=== PATIENT | male | born 1935 | race Caucasian/White ===

== ENCOUNTER 2016-08-26 05:57 | Inpatient (IN) | payer MEDICARE, OTHER ==
--- NOTE | ~2016-08-26 | HP ---
History And Physical [place] [id number] [facility] [place]. [address] NAME: MAITE CARTER : 37 STATUS : ADM Yfn PAT#: [id number] AGE: 81 ADM/REG DATE : 08/26/16 MR#: [id number] REPORT SERV DATE: 08/26/16 DICTATED BY: JOSE LUIS SAGE DATE: 08/26/16 REPORT STATUS : Draft TRANSCRIBED BY: MODL DATE: 08/26/16 DATE OF ADMISSION: 08/26/2016 POINT OF ENTRY: Transfer from [facility] Emergency Department. PRIMARY CARE PHYSICIAN: Dr. Acosta. PRIMARY DATA SECURITY COORDINATOR: Dr. Julio. CHIEF COMPLAINT: Elevated troponin value, elevated D-dimer, concern for CHF. HISTORY OF PRESENT ILLNESS: Mr. 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 The patient presented to [facility] Emergency Department today at his family's insistence for worsening weakness and reports of confusion. The patient does state that he is very weak, but he denies any confusion. Specifically, he also denies any chest pain, fevers, night sweats, chills, abdominal pain, vomiting, diarrhea, constipation, melena, or hematochezia. He does report some stable shortness of breath, as well as lower extremity edema, but states that his appetite has been good. Unfortunately, he is unable provide any more specific details as he is a very poor historian. No family is at bedside. Initial evaluation at [facility] Emergency Department notable for troponin value of 0.19. His creatinine is elevated at 2.3. BNP was greater than 5000. D-dimer is also elevated at 2210 with cutoff of less than 400. CT scan of the brain was negative. EKG shows sinus bradycardia. Chest x-ray reportedly showed some Bertin B lines. The patient was felt to be intravascularly dry, was put on some low-dose IV fluids and transferred to [facility] for high level of care. Upon transfer, again patient denies any chest pain. Does report some stable shortness of breath. Has really no other complaints. Did report some nausea a few days ago and is really unable to tell me specifically why his family wanted him to come to the ER other than he stated that they felt he was "going to ." REVIEW OF SYSTEMS: Comprehensive review of systems is otherwise negative unless listed in the history of present illness. PREVIOUS MEDICAL HISTORY: 1. Chronic systolic congestive heart failure, ejection fraction of 35% of 40%. 2. Hypertension. 3. Hyperlipidemia. 4. Prior history of cerebrovascular accident and chronic kidney disease, stage 3. History And Physical [address] [address] NAME: MAITE CARTER : 37 STATUS : ADM Yfn PAT#: [id number] AGE: 81 ADM/REG DATE : 08/26/16 MR#: [id number] REPORT SERV DATE: 08/26/16 DICTATED BY: JOSE LUIS SAGE DATE: 08/26/16 REPORT STATUS : Draft TRANSCRIBED BY: SINCERE DATE: 08/26/16 Baseline creatinine approximately 2.2. 5. Coronary artery disease with multivessel disease, but currently has declined surgical intervention. ALLERGIES: NO KNOWN DRUG ALLERGIES. HOME MEDICATIONS: Pending at time of dictation. SOCIAL HISTORY: Denies tobacco, alcohol, or illicits. Now lives with his son and daughter- in-law. FAMILY MEDICAL HISTORY: Noncontributory. SURGICAL HISTORY: 1. Left total hip arthroplasty. 2. Cholecystectomy. 3. Back surgery, . 4. Left arm fracture repair, . LABS AND IMAGING: All obtained from transfer records from [facility] Emergency Department. 1. White count is 9.7, hemoglobin 12.9, hematocrit 39.2, and platelet count is 187. INR 1.47. 2. D-dimer is 2210, cutoff is less than 400. Sodium level is 135, potassium 4.6, chloride 96, carbon dioxide 30, BUN 68, creatinine 2.3, glucose is 107, calcium is 9.1, protein 6.3, albumin 3.2, bilirubin is 1.6, ALT is 59, AST is 69, alkaline phosphatase is 125. 3. BNP is greater than 5000. Troponin 0.19, CK-MB 3.1. 4. TSH is 6.48. 5. CT scan of the brain shows no acute intracranial abnormality. Does show multiple areas of encephalomalacia from prior cerebrovascular accidents including the right parietal region as well as basal ganglia. 6. EKG per my review shows sinus bradycardia with an incomplete right bundle-branch block with some lateral inferolateral T-wave inversions. 7. Urinalysis: Specific gravity is 1.008. No evidence of any infection. PHYSICAL EXAMINATION: VITAL SIGNS: Temperature is 97.6 degrees Fahrenheit, pulse is 55, respirations 16, saturating 98% on 2 L by nasal cannula, blood pressure 119/58. GENERAL: The patient is awake, alert, and in no acute distress. Resting comfortably. He is a chronically ill-appearing, elderly male. No family is at bedside. HEENT: Atraumatic and normocephalic. Slightly dry mucous membranes. Pupils are equal, round, reactive to light and accommodation. Extraocular eye movements intact. No scleral icterus. NECK: No jugular venous distention. No carotid bruits. CARDIAC: Regular rate and rhythm. Occasional ectopic beats. The patient has a 3/6 systolic and a 2/6 diastolic murmur heard best over the apex. ABDOMEN: Soft, nontender, nondistended. Good bowel sounds. No rebound, guarding, or History And Physical [address] [address] NAME: MAITE CARTER : 37 STATUS : ADM Yfn PAT#: [id number] AGE: 81 ADM/REG DATE : 08/26/16 MR#: [id number] REPORT SERV DATE: 08/26/16 DICTATED BY: JOSE LUIS SAGE DATE: 08/26/16 REPORT STATUS : Draft TRANSCRIBED BY: MODTyson DATE: 08/26/16 rigidity. EXTREMITIES: Warm and perfused with 1 to 2+ lower extremity edema as well as chronic venous stasis changes. SKIN: Warm and dry except for noted above. PSYCH: Affect appropriate. NEURO: Alert, oriented x3. Cranial nerves 2 through 12 are grossly intact. Speech is normal. Gait not assessed. ASSESSMENT AND PLAN: Mr. Carter is a 81-year-old gentleman who presented to [facility] Emergency Department for reports of confusion and weakness, and found to have evidence of elevated troponin value, elevated D-dimer value, as well as concern for congestive heart failure. PROBLEM LIST: 1. Elevated troponin value. 2. Elevated D-dimer value. 3. Acute on chronic systolic congestive heart failure. 4. Confusion. 5. Weakness. 6. Chronic kidney disease, stage 3 to stage 4. 7. Transaminitis. 8. History of coronary artery disease. PLAN: 1. Elevated troponin value. The patient denies any chest pain. His EKG does not appear to show any active ischemia, although he does have some in mild inferolateral Q-wave inversions. This may be due to his depressed GFR and renal function as well as concern for acute on chronic systolic congestive heart failure. We will continue to trend out cardiac enzymes. We will consult the patient's primary bore miner operator for assistance. 2. Elevated D-dimer level. The patient denies any chest pain. He is not tachycardic, therefore we will not initiate anticoagulation at this time, but we will evaluate his elevated D-dimer with lower extremity Dopplers as well as a V/Q scan given the patient's elevated creatinine value. 3. Acute on chronic systolic congestive heart failure. The patient does have a BNP level greatly elevated at greater than 5000. He does have some lower extremity edema and a known history of CHF. The ER physician at [facility] was concerned that the patient was intravascularly dry and started him on IV fluids. We will stop IV fluids, give him some low-dose IV Lasix while we follow up our own BNP as well as repeat chest x-ray. 4. Weakness and confusion. Chest CT scan of the brain was unremarkable. Labs were otherwise unremarkable including urinalysis that was negative. The patient has a nonfocal neurologic exam here on my evaluation. We will workup weakness and confusion with ammonia level, B12, thyroid function studies, as well as avoiding sedating medications. Consult Physical Therapy for evaluation. 5. DVT prophylaxis. Lovenox subcu. 6. Code status. The patient wishes to be full code. History And Physical [address] [place]. [address] NAME: MAITE CARTER : 37 STATUS : ADM Yfn PAT#: [id number] AGE: 81 ADM/REG DATE : 08/26/16 MR#: [id number] REPORT SERV DATE: 08/26/16 DICTATED BY: JOSE LUIS SAGE DATE: 08/26/16 REPORT STATUS : Draft TRANSCRIBED BY: SINCERE DATE: 08/26/16 KATALINA/SINCERE Jose Luis Sage MD / [id number] CC: Leonard Arizmendi Jr., M.D.
--- NOTE | ~2016-08-26 | DS ---
Discharge Summary [facility] [address] [place]. [address] NAME: MAITE CAMACHO : 37 STATUS : DIS IN PAT#: [id number] AGE: 81 ADM/REG DATE : 08/26/16 MR#: [id number] REPORT SERV DATE: 08/29/16 DICTATED BY: ÁNGEL BELLO DATE: 08/28/16 REPORT STATUS : Draft TRANSCRIBED BY: MODL DATE: 08/28/16 ADMISSION DATE: 08/26/2016 DISCHARGE DATE: 08/28/2016 The patient to be discharging home today, and [facility] will be assuming care of the patient at home. DISCHARGE DIAGNOSES: Include: 1. Acute on chronic systolic heart failure with most recent ejection fraction of 35%, but in the setting of severe mitral regurgitation. 2. Positive troponin. 3. Chronic kidney disease stage 3, most recent creatinine 1.38. 4. 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 5. Weakness. 6. Nonsustained ventricular tachycardia. DISCHARGE MEDICATIONS: To be addressed fully by [facility], but currently at home including Lipitor 40 mg at bedtime, Coreg 3.125 mg twice a day, Plavix 75 mg daily, Flonase nasal spray daily, gabapentin 600 mg twice a day, Lasix 40 mg three times a day, hydrocodone 5/325 one tablet twice a day p.r.n., Ativan 1 mg twice a day, Zaroxolyn 2.5 mg every 48 hours, Flomax 0.4 mg daily, and potassium 20 mEq daily. HISTORY OF PRESENT ILLNESS: This is a 81-year-old white male, who originally was a transfer from [facility] Emergency Department for elevated troponin and CHF. Please see the initial H and P of Dr. Wolfgang Hernandez. The patient was admitted to the hospitalist service for further evaluation and treatment. He was given IV diuresis. Lab work was ordered and followed. His BNP was significantly elevated at greater than 5000. PROCEDURES AND IMAGING DURING THIS ADMISSION: Include a venous Doppler ultrasound of the lower extremities that was negative for bilateral DVTs and V/Q scan of the lung that showed an intermediate probability for pulmonary embolus, but in the setting of severe heart failure and BNP greater than 5000. HOSPITAL COURSE: I began seeing the patient on 08/26/2016, where he was feeling a little bit better, but not wishing to be very cooperative in answering questions. He had begun to diurese somewhat, although he was still quite edematous, particularly in his lower extremities. He underwent the above-described testing. As stated, Synthroid was added to his regimen as TSH was somewhat elevated and after further discussion with health program specialist, Dr. Emery, who saw the patient during this hospitalization, and further discussion with the patient's family, Palliative Care was consulted as the patient did not wish to proceed with any surgical intervention for his mitral valve. After the patient was seen by Palliative Care and discussion with his family, it was determined that hospice would be pursued as he is in end-stage heart failure, and [facility] was eventually consulted and they have agreed to go under their care at discharge. The patient did continue to diurese during this admission with IV Lasix and weight dropped from approximately 60 kg down to 55 kg, and appreciate Cardiology's and Palliative Care's help on this patient's hospitalization. I Discharge Summary [address] [address] NAME: MAITE CAMACHO : 37 STATUS : DIS IN PAT#: [id number] AGE: 81 ADM/REG DATE : 08/26/16 MR#: [id number] REPORT SERV DATE: 08/29/16 DICTATED BY: ÁNGEL BELLO DATE: 08/28/16 REPORT STATUS : Draft TRANSCRIBED BY: SINCERE DATE: 08/28/16 have updated the patient and family at bedside. [facility]/SANAML Ángel Bello NP / [id number] CC: Leonard Arizmendi MD
--- NOTE | ~2016-08-26 | CN ---
Consultation Report [facility] [address] [place]. [address] NAME: MAITE CARTER : 37 STATUS : ADM Yfn PAT#: [id number] AGE: 81 ADM/REG DATE : 08/26/16 MR#: [id number] REPORT SERV DATE: 08/26/16 DICTATED BY: SHERYL EMERY DATE: 08/26/16 REPORT STATUS : Draft TRANSCRIBED BY: MODL DATE: 08/26/16 CARDIOLOGY CONSULTATION DATE OF CONSULTATION: 08/26/2016 REASON FOR CONSULTATION: Dyspnea and congestive heart failure in a patient with known aortic insufficiency and mitral regurgitation. HISTORY OF PRESENT ILLNESS: Mr. Carter is a 81-year-old man with multiple medical problems, which include a history of aortic insufficiency and single-vessel coronary artery disease. The patient also has a history of chronic systolic heart failure. He is followed by Dr. Julio of [facility]. The patient apparently was previously recommended to have an aortic valve replacement surgery due to what was felt to be severe symptomatic aortic insufficiency. The patient refused this. Despite this fact, the patient's ejection fraction improved from its baseline of 20% in the year 2013 to its more recent value of 35% to 40%. The patient was last seen by Dr. Julio in 05/2016. He was having some dyspnea at that time, and was being treated with oral diuretics. The patient was brought to [facility] by his family for symptoms of "smothering" as well as dizziness and generalized fatigue. The patient was transferred to [facility] for further evaluation and management. At this time, the patient remains very fatigued and dyspneic. He has mild orthopnea, though he is alert and oriented and in no acute respiratory distress at this time. He denies chest pain. He is a somewhat poor historian. PAST MEDICAL HISTORY: 1. Chronic systolic heart failure. 2. Aortic insufficiency. 3. Mitral regurgitation. 4. Stroke. 5. Hypertension. 6. Possible chronic kidney disease (the patient is unaware of this). PAST SURGICAL HISTORY: Significant for cholecystectomy and hip replacement surgery. FAMILY HISTORY: Noncontributory. SOCIAL HISTORY: The patient does not smoke cigarettes. His family reports a distant history of alcohol use, but none in the last several years. He has no history of recreational drug use. Consultation Report [facility] [address] [place]. [address] NAME: MAITE CARTER : 37 STATUS : ADM Yfn PAT#: [id number] AGE: 81 ADM/REG DATE : 08/26/16 MR#: [id number] REPORT SERV DATE: 08/26/16 DICTATED BY: SHERYL EMERY DATE: 08/26/16 REPORT STATUS : Draft TRANSCRIBED BY: MODTyson DATE: 08/26/16 ALLERGIES: THE PATIENT HAS NO KNOWN MEDICATION ALLERGIES. HOME MEDICATIONS: The home MAR has not been completed, but according to Dr. Julio's most recent note, the patient's medications include the followin. Aspirin 81 mg daily. 2. Atorvastatin 40 mg p.o. at bedtime. 3. Carvedilol 3.125 mg twice daily. 4. Plavix 75 mg daily. 5. Lasix 80 mg p.o. q.a.m. and 40 mg q.p.m. 6. Gabapentin 600 mg p.o. at bedtime as needed. 7. Hydrocodone/acetaminophen 5/325 mg one tablet q.6 h. as needed. 8. Klor-Con 20 mEq daily. 9. Lorazepam 1 mg p.o. daily. 10.Metolazone 2.5 mg every Thursday, Thursday, and Thursday. 11.Multivitamin tablet one daily. 12.Nitroglycerin 0.4 mg as needed for chest pain. 13.Home oxygen. 14.Ranitidine 300 mg twice daily. 15.Tamsulosin ER 0.4 mg q.24 h. 16.Zolpidem 20 mg p.o. at bedtime. REVIEW OF SYSTEMS: A complete 12-system review was performed. This is noncontributory except for the pertinent positives and negatives noted in the history of present illness above. PHYSICAL EXAMINATION: VITAL SIGNS: The temperature is 97.6 degrees Fahrenheit, blood pressure is 119/58 mmHg, respirations 23, oxygen saturation is 99% on 2 L nasal cannula. CONSTITUTIONAL: The patient is a thin, chronically ill-appearing white man, who is fatigued, but in no acute respiratory distress at this time. EYES: PERRL, EOMI, clear conjunctiva. HEAD/MNT: NCAT with moist mucous membranes and grossly normal hard and soft palate. NECK: Supple with no obvious thyromegaly or lymphadenopathy CARDIOVASCULAR: There is a regular rhythm with a normal S1 and a physiologically split second heart sound. There is a grade 2/6 holosystolic murmur noted at the cardiac apex. There is a grade 1/6 decrescendo diastolic murmur best heard at the right upper sternal border. The jugular venous pressure does appear to be grossly elevated to greater than 14 cm. PULMONARY: Limited exam due to fatigue and lack of patient effort. However, there are bibasilar rales noted. No significant wheezing or rhonchi. ABDOMINAL: Soft, non-tender, non-distended with no hepatosplenomegaly noted. EXTREMITIES: There is 2 to 3+ pitting edema with stasis dermatitis noted. No clubbing or cyanosis. MUSCULOSKELETAL: Grossly normal strength and range of motion in all extremities INTEGUMENTARY: Skin appears intact with no bruises, wounds or active lesions noted Consultation Report [address] [place]. [address] NAME: MAITE CARTER : 37 STATUS : ADM Yfn PAT#: [id number] AGE: 81 ADM/REG DATE : 08/26/16 MR#: [id number] REPORT SERV DATE: 08/26/16 DICTATED BY: SHERYL EMERY DATE: 08/26/16 REPORT STATUS : Draft TRANSCRIBED BY: SINCERE DATE: 08/26/16 NEURO/PSYCH: Alert and oriented x3, with no dysarthria, facial droop or lateralizing weakness noted. TWELVE-LEAD EKG: The patient's 12-lead EKG shows sinus bradycardia with a rate of 57 beats per minute. There are nonspecific ST/T-wave abnormalities. Otherwise, unremarkable tracing. CHEST X-RAY: The chest x-ray is suggestive of [id number] pulmonary edema. LABORATORY DATA: White blood cell count is 9.7, hemoglobin 12.9, hematocrit 39, and platelets 187. Sodium is 135, potassium 4.6, chloride is 96, CO2 of 30, BUN 68, creatinine 2.3. Glucose is 107, troponin I 0.19. TSH is elevated at 6.48. B-type natriuretic peptide is grossly elevated at greater than 5000. ASSESSMENT AND PLAN: 1. Acute on chronic systolic congestive heart failure: The patient will be started back on Lasix 80 mg IV q.12 h., to affect diuresis. We will consider the addition of low- dose hydralazine for afterload reduction in the setting of chronic mitral regurgitation. 2. Complex valvular heart disease: The patient has at least moderate aortic insufficiency. He has severe mitral regurgitation: I have reviewed the patient's transthoracic echocardiogram, and there was clear central mitral regurgitation occupying greater than 60% of the left atrial volume, though it does not appear that mitral regurgitation indices were calculated. It is unclear whether the patient has primary or secondary mitral regurgitation. It may be a mixed picture, as the patient does have left ventricular dilation. However, the patient had no significant mitral regurgitation at the time of his cardiac catheterization in 2013. Despite an improvement in his left ventricular systolic function from 20% to 35%-40%, his mitral regurgitation is now severe. The mitral valve does appear to be mildly thickened and degenerated, and I suspect the patient does have some component of rheumatic heart disease. I feel the patient would likely be a candidate for mitral repair, though he is unwilling to consider this. Apparently, the patient's mother of complications of heart surgery. He is unwilling to consider any type of invasive cardiac treatment. Given that this is the case, the patient likely has a poor prognosis, and it would be reasonable to consider palliative care. However, we will attempt to alleviate the patient's symptoms with medical therapy as outlined above. 3. Coronary artery disease: Continue aspirin and atorvastatin. The patient has single- vessel disease involving the right posterior descending artery. He is not experiencing angina at this time. The patient does have a very mild elevation in his troponin I of 0.19. In my opinion, this is consistent with the patient's decompensated heart failure and chronic kidney disease. Given that the patient is unwilling to consider surgical therapy, and also given his advanced chronic kidney disease, I feel an invasive workup for coronary heart disease would be ill advised. Consultation Report [place] [id number] [place]. [address] NAME: MAITE CARTER : 37 STATUS : ADM Yfn PAT#: [id number] AGE: 81 ADM/REG DATE : 08/26/16 MR#: [id number] REPORT SERV DATE: 08/26/16 DICTATED BY: SHERYL EMERY DATE: 04/11/17 REPORT STATUS : Draft TRANSCRIBED BY: SINCERE DATE: 08/26/16 Thank you for allowing me to participate in the care of Mr. Carter. The Cardiology Service will continue to follow the patient closely during this hospitalization. MALISSA/SINCERE Sheryl Emery MD / [id number] CC: Leonard Arizmendi MD
[~2016-08-26 05:57] MED LIST: ASAB PO; ATV1 PO; BUM5 PO; FLOMAX4 PO; FLONASE NAS; KLOR-CON 1010 MEQ PO; KLOR-CON M2020 MEQ PO; L40 PO; LIPITOR40 PO; LOP25 PO; MICRO-K10 MEQ PO; MUCINEX1200 MG PO; NEUR600 PO; NITROQUICK0.4 MG SL; NORCO1 TA1 PO; PLAVIX PO; PRIN2.5 PO; PRIN5 PO; SPIRO25 PO; ULTRAM50 PO; ZANTAC300 MG PO
[2016-08-26 07:49] LABS: INTERNATIONAL NORMAL RATI 1.3 UNITS (-); PARTIAL THROMBO TIME 28.1 SEC (22.5-37.2); PROTIME (NOT ORD) 16.1 SEC (12.0-14.5)
[2016-08-26 07:53] LABS: D-DIMER QUANTITATIVE 3.49 ug/mLFEU (< 0.50)
[2016-08-26 08:35] LABS: FREE T4 0.93 NG/DL (0.76-1.46); ULTRASENSITIVE TSH 5.4 MCIU/ML (0.358-3.740)
[2016-08-26 08:40] LABS: FOLATE 33.3 NG/ML (>5.2); TROPONIN I 0.18 NG/ML (<0.05)
[2016-08-26] MEDS ORDERED: ATV1 PO (12:15)
[2016-08-26] MEDS ORDERED: NORCO1 TA1 PO (12:15)
[2016-08-26] MEDS ORDERED: ZAROX2.5B PO (12:16)
[2016-08-26] MEDS ORDERED: LIPITOR40 PO (12:16)
[2016-08-26] MEDS ORDERED: COREG3 PO (12:16)
[2016-08-26] MEDS ORDERED: NEUR600 PO (12:18)
[2016-08-26] MEDS ORDERED: L40 PO (12:18)
[2016-08-26] MEDS ORDERED: KLOR-CON M2020 MEQ PO (12:18)
[2016-08-26] MEDS ORDERED: FLONASE NAS (12:19)
[2016-08-26] MEDS ORDERED: FLOMAX4 PO (12:19)
[2016-08-26] MEDS ORDERED: PLAVIX PO (12:20)
[2016-08-26 14:05] LABS: CK-MB 2.4 NG/ML; CPK 39 U/L (0-200); TROPONIN I 0.16 NG/ML (<0.05)
[2016-08-26 20:31] LABS: CK-MB 1.8 NG/ML; CPK 36 U/L (0-200); TROPONIN I 0.17 NG/ML (<0.05)
[2016-08-27 04:07] LABS: BASOPHILS 0.1 %; BASOPHILS ABSOLUTE 0.01 10/3/uL (0.0-0.16); EOSINOPHILS ABSOLUTE 0.19 10/3/uL (0.0-0.53); HEMATOCRIT 37.1 % (40.0-51.0); HEMOGLOBIN 12.5 g/dL (13.6-17.8); IMMATURE GRANULOCYTES 0.5 %; IMMATURE GRANULOCYTES ABSOLUTE 0.05 10/3/uL (0.0-0.11); LYMPHOCYTES 5.5 %; LYMPHOCYTES ABSOLUTE 0.53 10/3/uL (0.67-4.30); MANUAL DIFF NO %; MEAN CORPUS HGB CONC 33.7 g/dL (32.0-36.0); MEAN CORPUSCULAR HEMOGLOB 27.8 pg (26.0-34.0); MEAN CORPUSCULAR VOLUME 82.6 fL (80-100); MEAN PLATELET VOLUME 9.4 fL (9.2-13.0); MONOCYTES 9.1 %; MONOCYTES ABSOLUTE 0.88 10/3/uL (0.21-1.20); NEUTROPHILS 82.8 %; NEUTROPHILS ABSOLUTE 8.03 10/3/uL (2.02-8.40); PLATELET COUNT 180 10/3/uL (150-400); RBC DISTRIBUTION WIDTH 19.9 % (12.0-16.0); RED CELL COUNT 4.49 10/6/uL (4.7-6.1); WHITE BLOOD CELLS 9.7 10/3/uL (4.5-10.5)
[2016-08-27 04:19] LABS: CALCIUM, SERUM 8.9 MG/DL (8.5-10.4); CHLORIDE, SERUM 93 MMOL/L (96-112); CREATININE 1.72 MG/DL (0.70-1.30); GFR AFRICAN AMERICAN 43 ML/MIN (>=60); GFR NON AFRICAN AMERICAN 37 ML/MIN (>=60); SODIUM, SERUM 135 MMOL/L (135-148)
[2016-08-27 04:23] LABS: BUN (BLOOD UREA NITROGEN) 59 MG/DL (6-23); CO2 (CARBON DIOXIDE) 34 MMOL/L (24-34); GLUCOSE, SERUM 138 MG/DL (60-99); POTASSIUM, SERUM 3.1 MMOL/L (3.5-5.3)
[2016-08-27 06:07] LABS: AMPHETAMINES (NOT ORD) NEG (NEG); BARBITURATES (NOT ORDERED NEG (NEG); BENZODIAZEPINES (NOT ORD) NEG (NEG); CANNABINOIDS (THC) NEG (NEG); COCAINE (NOT ORDERED) NEG (NEG); OPIATES POS (NEG); PHENCYCLIDINE(PCP) NEG (NEG); TRICYCLICS NEG (NEG)
[2016-08-27 06:15] LABS: OSMOLALITY, URINE 311 MOSM/KG (50-1200)
[2016-08-27 06:17] LABS: SODIUM, URINE 83 MEQ/L
[2016-08-27 12:22] LABS: SGOT(AST) 53 U/L (5-40); SGPT(ALT) 56 U/L (5-65); TOTAL PROTEIN 6.5 G/DL (6.0-8.5)
[2016-08-27 12:23] LABS: A/G RATIO 0.7 (0.7-1.9); ALBUMIN 2.7 G/DL (3.5-5.0); ALKALINE PHOSPHATASE 142 U/L (45-117); GLOBULIN 3.8 G/DL (2.5-4.1); TOTAL BILIRUBIN 1.6 MG/DL (0-1.2)
[2016-08-28 03:49] LABS: CHLORIDE, SERUM 95 MMOL/L (96-112); CO2 (CARBON DIOXIDE) 33 MMOL/L (24-34); CREATININE 1.38 MG/DL (0.70-1.30); GFR AFRICAN AMERICAN 56 ML/MIN (>=60); GFR NON AFRICAN AMERICAN 48 ML/MIN (>=60); SODIUM, SERUM 136 MMOL/L (135-148)
[2016-08-28 03:53] LABS: CALCIUM, SERUM 8.9 MG/DL (8.5-10.4)
[2016-08-28 03:54] LABS: BUN (BLOOD UREA NITROGEN) 53 MG/DL (6-23); GLUCOSE, SERUM 106 MG/DL (60-99); POTASSIUM, SERUM 3.2 MMOL/L (3.5-5.3)
== END 2016-08-28 14:21 | disposition hospice, home (50) | DRG 291 ==
LOC: CDU2 05:57
PROVIDERS: Internal Medicine
DX: I13.0 Hypertensive heart and chronic kidney disease with heart failure and stage 1 through stage 4 chronic kidney disease, or unspecified chronic kidney disease (principal); I50.23 Acute on chronic systolic (congestive) heart failure; I47.2 Ventricular tachycardia; N18.3 Chronic kidney disease, stage 3 (moderate); R00.1 Bradycardia, unspecified; Z51.5 Encounter for palliative care; E03.9 Hypothyroidism, unspecified; I25.10 Atherosclerotic heart disease of native coronary artery without angina pectoris; I08.0 Rheumatic disorders of both mitral and aortic valves; E78.5 Hyperlipidemia, unspecified; Z82.3 Family history of stroke; Z79.02 Long term (current) use of antithrombotics/antiplatelets; Z79.82 Long term (current) use of aspirin; Z96.642 Presence of left artificial hip joint
CPT/HCPCS: 71010; 78582; 80048; 80053; 80305; 82140; 82550; 82553; 82570; 82607; 82746; 83735; 83880; 83935; 84132; 84300; 84439; 84443; 84484; 85025; 85379; 85610; 85730; 93005; 93970; 97162-GP; A9270-GY; A9540; A9567; G8978-CK-GP; G8979-CJ-GP; J1940